=== PATIENT | male | born 1975 | race Caucasian/White ===

== ENCOUNTER 2022-03-15 11:45 | Inpatient (IN) | payer BC ==
[2022-03-15] MEDS ORDERED: Senokot S 8.6-50 MG TAB PO PRN (13:39)
[2022-03-15] MEDS: Sodium Chloride 0.9% 1,000 ML IV SCH ×2 (14:04→20:03)
[2022-03-15] MEDS: Morphine 4 MG/ML VIAL SLOW IVP PRN ×3 (14:04→22:55)
[2022-03-15 15:29] VITALS: BMI 35.2
[2022-03-15] MEDS: Piperacillin/Tazobactam 3.375 GM in Sodium Chloride 0.9% 100 ML IVPB SCH ×2 (16:35→22:56)
[2022-03-15] MEDS ORDERED: Ketorolac Tromethamine 30 MG/ML VIAL IVP SCH (18:00)
[2022-03-15] MEDS: Ketorolac Tromethamine 30 MG/ML VIAL IVP SCH (20:03)
[2022-03-15] MEDS: Famotidine/PF 20 mg/2ml Vial SLOW IVP SCH (20:03)
[2022-03-15 21:08] LABS: SARS-CoV-2 NAA Rapid Test Not Detected (NotDetected)
[2022-03-16] MEDS: Ketorolac Tromethamine 30 MG/ML VIAL IVP SCH ×4 (04:30→20:37)
[2022-03-16 06:03] LABS: #Lymphocytes 0.9 thou/uL (1.20-3.40); #Monocytes 1.2 thou/uL (0.11-0.59); #Neutrophils 11.1 thou/uL (1.40-6.50); %Basophils 0.2 % (0.0-1.0); %Eosinophils 0.2 % (0.0-10.0); %Lymphocytes 6.7 % (21.0-51.0); %Monocytes 9.1 % (0.0-10.0); %Neutrophils 83.8 % (42.0-75.0); Hemoglobin 15.1 g/dL (14.0-18.0); Mean Corpuscular HGB CONC 32.8 g/dL (32.0-36.0); Mean Corpuscular Hemoglobin 32.5 pg (27.0-31.0); Mean Corpuscular Volume 99.2 fL (78.0-98.0); Mean Platelet Volume 7.8 fL (7.4-10.4); Platelet Count 236 thou/uL (130-400); RBC Distribution Width 12.4 % (11.5-14.5); Red Blood Cell (RBC) Count 4.63 mill/uL (4.70-6.10); White Blood Cell (WBC) Count 13.2 thou/uL (4.8-10.8)
[2022-03-16 06:23] LABS: ALT (SGPT) 91 U/L (8-55); AST (SGOT) 51 U/L (5-34); Alkaline Phosphatase 61 U/L (40-110); Anion Gap 11 mmol/L (10-20); BUN (Urea Nitrogen) 13 mg/dL (8.9-20.6); Bilirubin, Total 1.9 mg/dL (0.2-1.2); Calc. Creatinine Clearance 195 mL/min (70-130); Calcium 7.9 mg/dL (7.8-10.44); Carbon Dioxide 26 mmol/L (22-29); Cardiac Risk 2.9 (Less than 4.5); Chloride 105 mmol/L (98-107); Cholesterol 134 mg/dl (< 200 Desired); Estimated GFR 108; Glucose 119 mg/dL (70-105); HDL Cholesterol 46 mg/dL (>60 Neg Risk); LDL Cholesterol, Calculated 79 mg/dL; Lipase 528 U/L (8-78); Potassium 3.5 mmol/L (3.5-5.1); Sodium 138 mmol/L (136-145); Triglycerides 47 mg/dL (Less than 150)
[2022-03-16] MEDS: Morphine 4 MG/ML VIAL SLOW IVP PRN ×4 (06:32→20:36)
[2022-03-16] MEDS: Piperacillin/Tazobactam 3.375 GM in Sodium Chloride 0.9% 100 ML IVPB SCH ×3 (07:50→23:49)
[2022-03-16] MEDS: Famotidine/PF 20 mg/2ml Vial SLOW IVP SCH ×2 (07:51→20:37)
[2022-03-16] MEDS: Ondansetron PF 4 MG/2 ML Vial IVP PRN ×2 (07:51→20:37)
[2022-03-16] MEDS: Enoxaparin Sodium 40 MG/0.4 ML SYRINGE SC SCH (07:52)
[2022-03-16] MEDS: Lactated Ringer's 1,000 ML IV SCH ×3 (09:33→21:12)
[2022-03-16 10:56] LABS: Hemoglobin A1c 4.9 % (4.0-6.0)
[2022-03-16] MEDS ORDERED: Piperacillin/Tazobactam 3.375 GM in Sodium Chloride 0.9% 100 ML IVPB SCH (14:45)
[2022-03-16] MEDS: Sodium Chloride 0.9% 1,000 ML IV SCH (22:02)
[2022-03-17] MEDS: Ketorolac Tromethamine 30 MG/ML VIAL IVP SCH ×4 (01:20→20:49)
[2022-03-17] MEDS: Morphine 4 MG/ML VIAL SLOW IVP PRN ×6 (01:20→23:18)
[2022-03-17] MEDS: Sodium Chloride 0.9% 1,000 ML IV SCH ×4 (01:23→23:17)
[2022-03-17 06:03] LABS: Albumin 3.4 g/dL (3.5-5.0); Anion Gap 13 mmol/L (10-20); BUN (Urea Nitrogen) 10 mg/dL (8.9-20.6); Bilirubin, Total 1.9 mg/dL (0.2-1.2); Calc. Creatinine Clearance 168 mL/min (70-130); Carbon Dioxide 22 mmol/L (22-29); Chloride 105 mmol/L (98-107); Estimated GFR 96; Glucose 101 mg/dL (70-105); Potassium 3.6 mmol/L (3.5-5.1); Protein, Total 6.1 g/dL (6.0-8.3); Sodium 136 mmol/L (136-145)
[2022-03-17 06:04] LABS: ALT (SGPT) 54 U/L (8-55); AST (SGOT) 23 U/L (5-34); Alkaline Phosphatase 60 U/L (40-110); Globulin 2.7 g/dL (2.4-3.5)
[2022-03-17 06:28] LABS: Band 4 % (5-11); Eosinophils 1 % (0-10); Lymphocytes 6 % (21-51); MDiff Complete? YES; Macrocytosis SLIGHT = 6-15 cells (100X) (0-5/hpf); Mean Corpuscular HGB CONC 31.9 g/dL (32.0-36.0); Mean Corpuscular Hemoglobin 32.1 pg (27.0-31.0); Mean Platelet Volume 8.4 fL (7.4-10.4); Monocytes 16 % (0-10); Neutrophil 71 % (42-75); Platelet Count 224 thou/uL (130-400); Platelet Morphology Comment Appears Increased; RBC Distribution Width 12.3 % (11.5-14.5); Reactive Lymphocytes 2 % (0-10); Red Blood Cell (RBC) Count 4.66 mill/uL (4.70-6.10); White Blood Cell (WBC) Count 12.4 thou/uL (4.8-10.8)
[2022-03-17] MEDS: Piperacillin/Tazobactam 3.375 GM in Sodium Chloride 0.9% 100 ML IVPB SCH ×3 (06:31→23:15)
[2022-03-17] MEDS: Enoxaparin Sodium 40 MG/0.4 ML SYRINGE SC SCH (08:40)
[2022-03-17] MEDS: Famotidine/PF 20 mg/2ml Vial SLOW IVP SCH ×2 (08:40→20:53)
[2022-03-17] MEDS: Ondansetron PF 4 MG/2 ML Vial IVP PRN ×2 (10:42→20:44)
[2022-03-18] MEDS: Ketorolac Tromethamine 30 MG/ML VIAL IVP SCH ×4 (03:10→20:07)
[2022-03-18] MEDS: HYDROcodone/Acetaminophen 5/325 mg Tablet PO PRN ×4 (03:20→20:10)
[2022-03-18 06:35] LABS: #Eosinphils 0.3 thou/uL (0.0-0.7); #Lymphocytes 1.1 thou/uL (1.20-3.40); #Monocytes 1.4 thou/uL (0.11-0.59); #Neutrophils 7.8 thou/uL (1.40-6.50); %Basophils 0.2 % (0.0-1.0); %Lymphocytes 10.6 % (21.0-51.0); %Monocytes 13.2 % (0.0-10.0); %Neutrophils 73.1 % (42.0-75.0); Hemoglobin 13.3 g/dL (14.0-18.0); Mean Corpuscular HGB CONC 32.5 g/dL (32.0-36.0); Mean Corpuscular Hemoglobin 32.5 pg (27.0-31.0); Mean Platelet Volume 8.2 fL (7.4-10.4); Platelet Count 217 thou/uL (130-400); RBC Distribution Width 11.9 % (11.5-14.5); Red Blood Cell (RBC) Count 4.08 mill/uL (4.70-6.10); White Blood Cell (WBC) Count 10.6 thou/uL (4.8-10.8)
[2022-03-18] MEDS: Piperacillin/Tazobactam 3.375 GM in Sodium Chloride 0.9% 100 ML IVPB SCH ×2 (07:28→14:45)
[2022-03-18 07:46] LABS: ALT (SGPT) 32 U/L (8-55); AST (SGOT) 17 U/L (5-34); Albumin 3.1 g/dL (3.5-5.0); Alkaline Phosphatase 50 U/L (40-110); Anion Gap 12 mmol/L (10-20); BUN (Urea Nitrogen) 7 mg/dL (8.9-20.6); Bilirubin, Total 1.4 mg/dL (0.2-1.2); Calc. Creatinine Clearance 207 mL/min (70-130); Calcium 8.1 mg/dL (7.8-10.44); Carbon Dioxide 23 mmol/L (22-29); Chloride 104 mmol/L (98-107); Estimated GFR 110; Globulin 2.8 g/dL (2.4-3.5); Glucose 89 mg/dL (70-105); Potassium 3.4 mmol/L (3.5-5.1); Protein, Total 5.9 g/dL (6.0-8.3); Sodium 136 mmol/L (136-145)
[2022-03-18] MEDS ORDERED: Potassium Chloride 20 MEQ TAB PO SCH (08:45)
[2022-03-18] MEDS: Famotidine/PF 20 mg/2ml Vial SLOW IVP SCH ×2 (09:42→20:08)
[2022-03-18] MEDS: Polyethylene Glycol 3350 17 GM Packet PO SCH (09:42)
[2022-03-18] MEDS: Enoxaparin Sodium 40 MG/0.4 ML SYRINGE SC SCH (09:43)
[2022-03-18] MEDS: Sodium Chloride 0.9% 1,000 ML IV SCH ×3 (09:50→20:11)
[2022-03-18] MEDS: Morphine 4 MG/ML VIAL SLOW IVP PRN ×3 (12:07→23:07)
[2022-03-18 23:46] VITALS: TEMP 97.4
[2022-03-19] MEDS: Sodium Chloride 0.9% 1,000 ML IV SCH ×2 (01:38→08:52)
[2022-03-19] MEDS: Ketorolac Tromethamine 30 MG/ML VIAL IVP SCH ×3 (01:39→14:21)
[2022-03-19] MEDS: HYDROcodone/Acetaminophen 5/325 mg Tablet PO PRN ×3 (01:40→14:20)
[2022-03-19] MEDS ORDERED: Simethicone Chewable 80 MG TAB PO PRN (01:59)
[2022-03-19 06:19] LABS: #Eosinphils 0.3 thou/uL (0.0-0.7); #Monocytes 1.1 thou/uL (0.11-0.59); #Neutrophils 6.5 thou/uL (1.40-6.50); %Basophils 0.4 % (0.0-1.0); %Lymphocytes 10.7 % (21.0-51.0); %Monocytes 12.7 % (0.0-10.0); %Neutrophils 73.2 % (42.0-75.0); Hemoglobin 13.7 g/dL (14.0-18.0); Mean Corpuscular HGB CONC 32.7 g/dL (32.0-36.0); Mean Corpuscular Hemoglobin 32.8 pg (27.0-31.0); Mean Platelet Volume 7.4 fL (7.4-10.4); Platelet Count 262 thou/uL (130-400); RBC Distribution Width 12.1 % (11.5-14.5); Red Blood Cell (RBC) Count 4.17 mill/uL (4.70-6.10); White Blood Cell (WBC) Count 8.9 thou/uL (4.8-10.8)
[2022-03-19 07:34] LABS: ALT (SGPT) 29 U/L (8-55); AST (SGOT) 17 U/L (5-34); Albumin 3.4 g/dL (3.5-5.0); Alkaline Phosphatase 54 U/L (40-110); Anion Gap 11 mmol/L (10-20); BUN (Urea Nitrogen) 5 mg/dL (8.9-20.6); Bilirubin, Total 1.1 mg/dL (0.2-1.2); Calc. Creatinine Clearance 186 mL/min (70-130); Calcium 8.5 mg/dL (7.8-10.44); Carbon Dioxide 25 mmol/L (22-29); Chloride 106 mmol/L (98-107); Estimated GFR 106; Glucose 93 mg/dL (70-105); Potassium 3.7 mmol/L (3.5-5.1); Protein, Total 6.4 g/dL (6.0-8.3); Sodium 138 mmol/L (136-145)
[2022-03-19] MEDS: Famotidine/PF 20 mg/2ml Vial SLOW IVP SCH (08:54)
[2022-03-19] MEDS: Enoxaparin Sodium 40 MG/0.4 ML SYRINGE SC SCH ×2 (08:54→08:57)
[2022-03-19] MEDS: Polyethylene Glycol 3350 17 GM Packet PO SCH (09:40)
[2022-03-19] MEDS: Morphine 4 MG/ML VIAL SLOW IVP PRN (11:48)
[2022-03-19 11:58] VITALS: BP 142/90
== END 2022-03-19 14:39 | disposition home or self-care (01) | DRG 440 ==
LOC: SURG A 13:18
PROVIDERS: ADMIT Hospitalist; ATTEND Internal Medicine
DX: K85.20 Alcohol induced acute pancreatitis without necrosis or infection (principal); G47.00 Insomnia, unspecified; F41.9 Anxiety disorder, unspecified; F10.10 Alcohol abuse, uncomplicated; E66.01 Morbid (severe) obesity due to excess calories; E80.6 Other disorders of bilirubin metabolism; K70.10 Alcoholic hepatitis without ascites; E11.9 Type 2 diabetes mellitus without complications; K70.0 Alcoholic fatty liver; K59.03 Drug induced constipation; T40.605A Adverse effect of unspecified narcotics, initial encounter; E87.6 Hypokalemia; Z79.899 Other long term (current) drug therapy; Z68.35 Body mass index [BMI] 35.0-35.9, adult
CPT/HCPCS: 36415; 80048; 80053; 80061; 82150; 82247; 82607; 83036; 83690; 84075; 84425; 84450; 84460; 85025; 87040; J1650; J1885; J2270; J2405; J2543; J3490; J7050; J7120; S0028; U0002